=== PATIENT | female | born 1990 | race Caucasian/White ===

== ENCOUNTER 2017-08-15 18:47 | Emergency (ER) | payer OTHER ==
[~2017-08-15] VITALS: Ht 152.4 cm; Wt 72.4 kg
[~2017-08-15 18:47] MED LIST: BACLOFEN10 MG PO; MOTRIN600 MG PO; ZOFRAN4 MG PO
[2017-08-15 20:05] LABS: MCH 30.7 PG (29.0-34.0); MCHC 33.8 G/DL (30.0-36.0); MCV 90.9 FL (83-99); MEAN PLAT.VOLUME 9.3 uM^3 (9.5-12.4); PLATELET COUNT 284 K/uL (156-360); RBC DIS.WIDTH-CV 11.8 % (11.8-14.6); RBC DIS.WIDTH-SD 39.4 % (39-53); RED BLOOD COUNT 4.62 M/uL (3.80-5.20); WHITE BLOOD COUNT 7.6 K/uL (4.1-10.2)
[2017-08-15 20:22] LABS: CHLORIDE 104 mEq/L (99-109); POTASSIUM 4.2 mEq/L (3.7-5.4); SODIUM 140 mEq/L (136-147)
[2017-08-15 20:24] LABS: GLUCOSE 97 mg/dL (70-99)
[2017-08-15 20:25] LABS: ANION GAP 10 MEQ/L (2-14)
[2017-08-15 20:27] LABS: TROP-I INTERPRETATION NEGATIVE; TROPONIN-I < 0.01 ng/mL (0.0-0.30)
[2017-08-15 20:28] LABS: GFR ESTIMATE (CALCULATED) > 59 mL/min/; UREA NITROGEN (BUN) 9 mg/dL (9-23)
[2017-08-15 21:12] LABS: D-DIMER ELISA < 150.00 ng/mLDDU (<230)
[2017-08-15 21:56] VITALS: BP 116/79
== END 2017-08-15 21:57 | disposition home or self-care (01) ==
LOC: EME 18:47
PROVIDERS: Physician Assistant Medical
DX: R07.9 Chest pain, unspecified (principal); Z88.1 Allergy status to other antibiotic agents
CPT/HCPCS: 71020; 80048; 84484; 85027; 85379; 93005; 99281; 99284